=== PATIENT | female | born 1975 | race Caucasian/White ===

== ENCOUNTER → 2016-07-07 | Outpatient (CLI) | payer MEDICARE, OTHER ==
[~2016-07-07] MED LIST: ATARAX PO; ATIVAN; BICARB PO; CIPRO250 MG PO; COMBIVENT14.7 GM; COUMADIN10 MG PO; DESYREL50 MG PO; DIAZEPAM PO; DILAUDID2 MG PO; DORIBAX500 MG IV; DOXYCYCLINE HY100 M1 PO; FAMOTIDINE PO; GARAMYCIN; GENESUPP-5001 CAP PO; IRON1 TAB; IV ANTIBIOTIC; K-LOR20 MEQ PO; KLONOPIN1 MG; LEVAQUIN; LEVAQUIN PO; LEVAQUIN750 MG PO; LIPITOR PO; LIPITOR20 MG; LIPITOR40 MG PO; LORTAB 10/500 T1 TAB; LORTAB 5/500 TA1 TA2 PO; LORTAB 7.5-5001 TAB PO; MACROBID 100 M100 MG PO; MACROBID100 M1 PO; MACROBID100 MG; MACROBID100 MG PO; MACRODANTIN PO; MERREM1 G/VIA1; MICROBID PO; NEXIUM PO; NORCO 10-325 TA1 TAB PO; NORCO 10/325 TA1 TAB PO; NORCO 5/325 TAB1 TAB PO; OCUFLOX10 ML OP; PERCOCET 10-651 EACH PO; PHENERGAN PO; PHENERGAN PR; PHENERGAN12.5 MG PO; PHENERGAN25 MG PO; PROTONIX PO; PYRIDIUM PO; REGLAN10 MG PO; RENAGEL400 MG PO; ROCEPHIN1 G/VIAL IJ; ROXICODONE5 MG PO; SOD BICARBONATE PO; SODIUM BICARBO325 MG; SODIUM BICARBO650 MG PO; TETRACYCLINE; TRAMADOL HCL50 M1 PO; TRAZODONE HCL100 MG PO; ULTRAM PO; VALIUM10 MG PO; VIBRAMYCIN100 M1 PO; VITAMIN B COMP1 EACH PO; VITAMIN D 22000 UNIT PO; ZANAFLEX PO; ZOFRAN PO; ZOLOFT PO; [UNRECOGNIZED DRUG - OTHER] PO
[2016-07-07 16:43] LABS: HEMATOCRIT 43.6 % (35.0-45.0); HEMOGLOBIN 13.9 gm/dL (12.0-16.0); MEAN CORPUSCULAR HEMOGLOBIN 30.3 PG (28-34); MEAN CORPUSCULAR HGB CONC 31.9 g/dL (30-36); MEAN PLATELET VOLUME 6.7 FL (6.5-11.5); RED BLOOD COUNT 4.58 X10e (3.90-5.30); RED CELL DISTRIBUTION WIDTH 15.4 % (11.0-15.5); WHITE BLOOD COUNT 15.6 X10e3 (4.0-10.5)
[2016-07-07 17:44] LABS: CALCIUM SERUM 8.4 mg/dL (8.4-10.2); CREATININE SERUM 2.4 mg/dL (0.6-1.4); GLOM FILT RATE Estimated 23.5 mL/min (>60); MAGNESIUM 1.9 mg/dL (1.6-3.0); PHOSPHOROUS 4.2 mg/dL (2.5-4.6); POTASSIUM 4.8 mmol/L (3.5-5.1)
[2016-07-11 16:27] LABS: CALCIUM (PTHINTACT) 8.9 mg/dL (8.6-10.2)
== END | disposition home or self-care (01) ==
LOC: SLAB 16:19
PROVIDERS: Internal Medicine Nephrology
DX: N18.4 Chronic kidney disease, stage 4 (severe) (principal)
CPT/HCPCS: 36415; 80048; 82310; 83735; 83970; 84100; 85027